=== PATIENT | female | born 1955 | race Caucasian/White ===

== ENCOUNTER → 2020-05-30 | Outpatient (CLI) | payer OTHER | END | disposition home or self-care (01) | LOC: RAD 11:37 | DX: M47.812 Spondylosis without myelopathy or radiculopathy, cervical region (principal); M43.12 Spondylolisthesis, cervical region; M48.02 Spinal stenosis, cervical region; M25.78 Osteophyte, vertebrae ==

== ENCOUNTER → 2020-07-19 | Outpatient (CLI) | payer OTHER | END | disposition home or self-care (01) | LOC: MRI 13:00 | PROVIDERS: ATTEND Orthopaedic Surgery | DX: M47.817 Spondylosis without myelopathy or radiculopathy, lumbosacral region (principal); M51.37 Other intervertebral disc degeneration, lumbosacral region; M43.06 Spondylolysis, lumbar region; M17.0 Bilateral primary osteoarthritis of knee; M25.762 Osteophyte, left knee; M25.761 Osteophyte, right knee; M47.812 Spondylosis without myelopathy or radiculopathy, cervical region; M48.02 Spinal stenosis, cervical region; M25.78 Osteophyte, vertebrae; R20.2 Paresthesia of skin; R29.2 Abnormal reflex; M54.41 Lumbago with sciatica, right side; M43.02 Spondylolysis, cervical region ==

== ENCOUNTER 2022-11-08 18:30 | Emergency (ER) | payer MEDICARE, OTHER ==
[~2022-11-08] VITALS: Ht 165.1 cm; Wt 116.1 kg
[2022-11-08] MEDS ORDERED: NEURONTIN600 MG PO (19:49)
[2022-11-08] MEDS ORDERED: ATORVASTATIN CA20 M1 PO (19:50)
[2022-11-08] MEDS ORDERED: VOLTAREN50 M1 PO (19:50)
[2022-11-08] MEDS ORDERED: PERCOCET 10-321 EACH PO (19:52)
[2022-11-08 20:35] LABS: BASO % 0.4 % (0.0-1.0); EOS % 0.1 % (1.0-4.0); HEMATOCRIT 40.3 % (37.0-47.0); LYMPH # 2.1 10*3/uL (1.3-4.4); LYMPH % 25.1 % (27.0-41.0); MEAN CELL VOLUME 91.4 fl (81.0-99.0); MEAN CORPUSCULAR HGB 29.7 pg (27.0-31.0); MEAN CORPUSCULAR HGB CONC 32.5 g/dl (33.0-37.0); MEAN PLATELET VOLUME 10.6 fl (9.6-12.3); MONO # 0.6 10*3/uL (0.1-1.0); MONO % 7.3 % (3.0-9.0); NEUT # 5.7 10*3/uL (2.3-7.9); NEUT % 66.7 % (47.0-73.0); PLATELET COUNT AUTOMATED 206 10*3/uL (130-400); RED BLOOD COUNT 4.41 10*6/uL (4.10-5.10); RED CELL DISTRI WIDTH 12.4 % (0-14.5); WHITE BLOOD COUNT 8.5 10*3/uL (4.8-10.8)
[2022-11-08 20:50] LABS: ALKALINE PHOSPHATASE 88 U/L (46-116); BUN 23 mg/dl (9-23); CHLORIDE 103 mmol/L (98-107); CREATININE 0.97 mg/dL (0.55-1.02); LIPASE 40 U/L (12-53); POTASSIUM 4.2 mmol/L (3.4-5.1); SGPT/ALT 15 U/L (10-49); TOTAL PROTEIN 6.6 gm/dL (6.0-8.0)
[2022-11-08 20:51] LABS: ACT PARTIAL THROMBO TIME 24.5 SECONDS (20.0-32.1); INTERNATIONAL NORM RATIO 0.9 (2.0-3.5)
[2022-11-08] MEDS ORDERED: PREDNISONE20 M1 PO (22:53)
== END 2022-11-08 23:49 | disposition home or self-care (01) ==
LOC: ED 18:30
PROVIDERS: Family Medicine
DX: M48.02 Spinal stenosis, cervical region (principal)

== ENCOUNTER → 2023-02-25 | Outpatient (CLI) | payer MEDICARE ==
[~2023-02-25] MED LIST: ATORVASTATIN CA20 M1 PO; BUSPIRONE HCL10 MG PO; DICLOFENAC SOD75 MG PO; FUROSEMIDE20 M1 PO; GABAPENTIN800 MG PO; MELATONIN5 M7 PO; NEURONTIN600 MG PO; OMNICEF300 MG PO; PERCOCET 10-321 EACH PO; POTASSIUM CHLO10 ME5 PO; PREDNISONE20 M1 PO; TRAZODONE100 MG PO; VOLTAREN50 M1 PO; ZITHROMAX250 MG PO
== END | disposition home or self-care (01) ==
LOC: RESCLI 10:35
PROVIDERS: ATTEND Internal Medicine
DX: J44.9 Chronic obstructive pulmonary disease, unspecified (principal); E78.5 Hyperlipidemia, unspecified; F17.210 Nicotine dependence, cigarettes, uncomplicated; Z98.890 Other specified postprocedural states; Z79.899 Other long term (current) drug therapy

== ENCOUNTER → 2023-05-02 | Outpatient (CLI) | payer MEDICARE | END | disposition home or self-care (01) | LOC: RAD 01:14 | PROVIDERS: ATTEND Orthopaedic Surgery | DX: Z13.820 Encounter for screening for osteoporosis (principal); M17.11 Unilateral primary osteoarthritis, right knee; M17.12 Unilateral primary osteoarthritis, left knee; M25.50 Pain in unspecified joint; R93.89 Abnormal findings on diagnostic imaging of other specified body structures; Z78.0 Asymptomatic menopausal state ==

== ENCOUNTER 2023-06-22 15:25 | Emergency (ER) | payer MEDICARE ==
[~2023-06-22] VITALS: Ht 1676 cm; Wt 111.6 kg
[2023-06-22 16:01] LABS: BASO % 0.6 % (0.0-1.0); EOS # 0.1 10*3/uL (0.0-0.4); EOS % 1.7 % (1.0-4.0); HEMATOCRIT 33.1 % (37.0-47.0); LYMPH # 1.3 10*3/uL (1.3-4.4); LYMPH % 24.2 % (27.0-41.0); MEAN CELL VOLUME 90.7 fl (81.0-99.0); MEAN CORPUSCULAR HGB 29.3 pg (27.0-31.0); MEAN CORPUSCULAR HGB CONC 32.3 g/dl (33.0-37.0); MEAN PLATELET VOLUME 10.1 fl (9.6-12.3); MONO # 0.4 10*3/uL (0.1-1.0); MONO % 8.5 % (3.0-9.0); NEUT # 3.3 10*3/uL (2.3-7.9); NEUT % 64.6 % (47.0-73.0); PLATELET COUNT AUTOMATED 181 10*3/uL (130-400); RED BLOOD COUNT 3.65 10*6/uL (4.10-5.10); RED CELL DISTRI WIDTH 12.9 % (0-14.5); WHITE BLOOD COUNT 5.2 10*3/uL (4.8-10.8)
[2023-06-22 16:17] LABS: BILIRUBIN Negative (Negative); BLOOD Negative (Negative); CLARITY Clear (Clear); COLOR Yellow (Yellow); GLUCOSE Negative (Negative); KETONE Negative (Negative); LEUKO ESTERASE Negative (Negative); NITRITE Negative (Negative); PH 7.5 (4.5-8.0)
[2023-06-22 16:24] LABS: ALKALINE PHOSPHATASE 108 U/L (46-116); BUN 10 mg/dl (9-23); CHLORIDE 99 mmol/L (98-107); POTASSIUM 4.3 mmol/L (3.4-5.1); SGPT/ALT 13 U/L (10-49); TOTAL PROTEIN 6.2 gm/dL (6.0-8.0)
[2023-06-22 16:28] LABS: BACTERIA TRACE; EPITHELIAL CELLS 16-20
== END 2023-06-22 17:36 | disposition home or self-care (01) ==
LOC: ED 15:25
PROVIDERS: Nurse Practitioner Family
DX: S83.91XA Sprain of unspecified site of right knee, initial encounter (principal); I10 Essential (primary) hypertension; J44.9 Chronic obstructive pulmonary disease, unspecified; W01.0XXA Fall on same level from slipping, tripping and stumbling without subsequent striking against object, initial encounter; Y93.89 Activity, other specified; Y92.89 Other specified places as the place of occurrence of the external cause; Y99.8 Other external cause status

== ENCOUNTER 2023-06-26 00:01 | Inpatient (IN) | payer MEDICARE ==
[~2023-06-26] VITALS: Ht 160 cm; Wt 111.6 kg
[2023-06-26] VITALS (8 sets, daily range): BP systolic 87–144; BP diastolic 46–87
[2023-06-26 00:18] LABS: BASO % 0.4 % (0.0-1.0); EOS % 0.3 % (1.0-4.0); HEMATOCRIT 32.6 % (37.0-47.0); LYMPH # 1.6 10*3/uL (1.3-4.4); LYMPH % 15.1 % (27.0-41.0); MEAN CELL VOLUME 88.3 fl (81.0-99.0); MEAN CORPUSCULAR HGB 29.5 pg (27.0-31.0); MEAN CORPUSCULAR HGB CONC 33.4 g/dl (33.0-37.0); MEAN PLATELET VOLUME 10.2 fl (9.6-12.3); MONO # 0.9 10*3/uL (0.1-1.0); MONO % 8.8 % (3.0-9.0); NEUT # 7.8 10*3/uL (2.3-7.9); NEUT % 75.1 % (47.0-73.0); PLATELET COUNT AUTOMATED 195 10*3/uL (130-400); RED BLOOD COUNT 3.69 10*6/uL (4.10-5.10); RED CELL DISTRI WIDTH 13.1 % (0-14.5); WHITE BLOOD COUNT 10.4 10*3/uL (4.8-10.8)
[2023-06-26 00:29] LABS: ACT PARTIAL THROMBO TIME 27.1 SECONDS (20.0-32.1)
[2023-06-26 00:44] LABS: POTASSIUM 4.1 mmol/L (3.4-5.1); TOTAL PROTEIN 6.4 gm/dL (6.0-8.0)
[2023-06-26 01:10] LABS: BILIRUBIN Negative (Negative); BLOOD Negative (Negative); CLARITY Clear (Clear); COLOR Yellow (Yellow); GLUCOSE Negative (Negative); KETONE Trace (Negative); LEUKO ESTERASE Negative (Negative); NITRITE Negative (Negative); PH 5.5 (4.5-8.0); SPECIFIC GRAVITY 1.015 (1.001-1.030)
[2023-06-26 02:03] LABS: BACTERIA TRACE; WBC 0-2 wbc/hpf (0-5)
[2023-06-26] MEDS ORDERED: 'CLONIDINE0.1 MG PO (03:14)
[2023-06-26] MEDS ORDERED: ABILIFY2 MG PO (03:14)
[2023-06-26] MEDS ORDERED: ARIPIPRAZOLE2 MG PO (03:15)
[2023-06-26] MEDS ORDERED: BUSPAR15 MG PO (03:16)
[2023-06-26] MEDS ORDERED: Bactroban Oint22 GM T (03:17)
[2023-06-26] MEDS ORDERED: SPIRIVA RESPIMAT4 GM INH (03:38)
[2023-06-26] MEDS ORDERED: PROVENTIL HFA6.7 GM INH (03:38)
[2023-06-26 05:31] LABS: ALKALINE PHOSPHATASE 94 U/L (46-116); BUN 14 mg/dl (9-23); CHLORIDE 101 mmol/L (98-107); POTASSIUM 4.1 mmol/L (3.4-5.1); SGPT/ALT 21 U/L (10-49); TOTAL PROTEIN 5.9 gm/dL (6.0-8.0)
[2023-06-26 06:07] LABS: BASO % 0.4 % (0.0-1.0); EOS % 0.6 % (1.0-4.0); HEMATOCRIT 32.4 % (37.0-47.0); LYMPH # 1.5 10*3/uL (1.3-4.4); LYMPH % 22.5 % (27.0-41.0); MEAN CORPUSCULAR HGB 29.4 pg (27.0-31.0); MEAN CORPUSCULAR HGB CONC 32.1 g/dl (33.0-37.0); MEAN PLATELET VOLUME 10.7 fl (9.6-12.3); MONO # 0.6 10*3/uL (0.1-1.0); MONO % 8.9 % (3.0-9.0); NEUT # 4.5 10*3/uL (2.3-7.9); NEUT % 66.6 % (47.0-73.0); PLATELET COUNT AUTOMATED 170 10*3/uL (130-400); RED BLOOD COUNT 3.54 10*6/uL (4.10-5.10); RED CELL DISTRI WIDTH 13.1 % (0-14.5); WHITE BLOOD COUNT 6.8 10*3/uL (4.8-10.8)
[2023-06-26 06:59] LABS: MEAN CELL VOLUME 91.5 fl (81.0-99.0)
[2023-06-26] MEDS ORDERED: VOLTAREN ARTHRI20 GM T (17:31)
[2023-06-27] VITALS: BP 110/84
[2023-06-27 05:57] LABS: HEMATOCRIT 34.9 % (37.0-47.0); MEAN CELL VOLUME 91.1 fl (81.0-99.0); MEAN PLATELET VOLUME 10.5 fl (9.6-12.3); PLATELET COUNT AUTOMATED 191 10*3/uL (130-400); RED BLOOD COUNT 3.83 10*6/uL (4.10-5.10); RED CELL DISTRI WIDTH 12.8 % (0-14.5); WHITE BLOOD COUNT 6.3 10*3/uL (4.8-10.8)
[2023-06-27 06:13] LABS: ALKALINE PHOSPHATASE 102 U/L (46-116); BUN 12 mg/dl (9-23); CHLORIDE 103 mmol/L (98-107); MANUAL DIFF REFLEX YES; POTASSIUM 4.7 mmol/L (3.4-5.1); SGPT/ALT 26 U/L (10-49); TOTAL PROTEIN 6.6 gm/dL (6.0-8.0)
[2023-06-27 07:37] LABS: TOTAL CELLS COUNTED 100 #CELLS
[2023-06-27 07:38] LABS: PLATELET SUFFICIENCY NORMAL (NORMAL)
[2023-06-27 08:00] VITALS: BP 111/72
[2023-06-27 12:00] VITALS: BP 129/70
[2023-06-27 16:00] VITALS: BP 125/70
[2023-06-27 20:00] VITALS: BP 125/68
[2023-06-28] VITALS: BP 149/77
[2023-06-28] MEDS ORDERED: DICLOFENAC SOD75 MG PO (06:19)
[2023-06-28] MEDS ORDERED: BUPROPION XL300 MG PO (06:24)
[2023-06-28] MEDS ORDERED: VITAMIN D310 MC3 PO (06:28)
[2023-06-28 08:02] VITALS: BP 128/65
[2023-06-28 12:12] VITALS: BP 130/84
[2023-06-28 16:04] VITALS: BP 140/78
[2023-06-28 20:00] VITALS: BP 153/84
[2023-06-29] VITALS: BP 159/87
[2023-06-29 08:00] VITALS: BP 141/90
[2023-06-29 12:00] VITALS: BP 151/88
[2023-06-29 16:00] VITALS: BP 148/87
[2023-06-29 20:00] VITALS: BP 141/85
[2023-06-30] VITALS: BP 129/72
[2023-06-30 07:09] LABS: BASO % 0.4 % (0.0-1.0); HEMATOCRIT 36.7 % (37.0-47.0); LYMPH % 12.3 % (27.0-41.0); MEAN CELL VOLUME 92.4 fl (81.0-99.0); MEAN CORPUSCULAR HGB 29.5 pg (27.0-31.0); MEAN CORPUSCULAR HGB CONC 31.9 g/dl (33.0-37.0); MEAN PLATELET VOLUME 10.6 fl (9.6-12.3); MONO # 0.2 10*3/uL (0.1-1.0); NEUT # 6.7 10*3/uL (2.3-7.9); NEUT % 83.1 % (47.0-73.0); PLATELET COUNT AUTOMATED 215 10*3/uL (130-400); RED BLOOD COUNT 3.97 10*6/uL (4.10-5.10)
[2023-06-30 08:00] VITALS: BP 140/67
[2023-06-30 12:00] VITALS: BP 135/80
[2023-06-30] MEDS ORDERED: GABAPENTIN800 MG PO (16:13)
[2023-06-30] MEDS ORDERED: DEXAMETHASONE6 MG PO (16:13)
[2023-06-30] MEDS ORDERED: PERCOCET 10-321 EACH PO (16:13)
[2023-06-30] MEDS ORDERED: VIBRAMYCIN HYC100 MG PO (16:16)
== END 2023-06-30 17:00 | DRG 602 ==
LOC: ED 00:01 → 5E 02:14 → EDHOLD 02:14 → 5E 13:39
PROVIDERS: Internal Medicine; Student in an Organized Health Care Education/Training Program; ADMIT Internal Medicine; ATTEND Internal Medicine
DX: L03.116 Cellulitis of left lower limb (principal); J96.01 Acute respiratory failure with hypoxia; J44.1 Chronic obstructive pulmonary disease with (acute) exacerbation; E87.1 Hypo-osmolality and hyponatremia; T88.3XXA Malignant hyperthermia due to anesthesia, initial encounter; F17.210 Nicotine dependence, cigarettes, uncomplicated; R00.0 Tachycardia, unspecified; R73.9 Hyperglycemia, unspecified; D64.9 Anemia, unspecified; K80.20 Calculus of gallbladder without cholecystitis without obstruction; L03.115 Cellulitis of right lower limb; R74.01 Elevation of levels of liver transaminase levels; D35.02 Benign neoplasm of left adrenal gland; M47.816 Spondylosis without myelopathy or radiculopathy, lumbar region; M48.062 Spinal stenosis, lumbar region with neurogenic claudication; G62.9 Polyneuropathy, unspecified; S91.101A Unspecified open wound of right great toe without damage to nail, initial encounter; X58.XXXA Exposure to other specified factors, initial encounter; S91.102A Unspecified open wound of left great toe without damage to nail, initial encounter; S91.002A Unspecified open wound, left ankle, initial encounter; E78.5 Hyperlipidemia, unspecified; F41.9 Anxiety disorder, unspecified; F32.A Depression, unspecified; T41.45XA Adverse effect of unspecified anesthetic, initial encounter; Z88.1 Allergy status to other antibiotic agents; Z88.8 Allergy status to other drugs, medicaments and biological substances; Z80.8 Family history of malignant neoplasm of other organs or systems; Z82.49 Family history of ischemic heart disease and other diseases of the circulatory system; Y93.89 Activity, other specified; Y92.89 Other specified places as the place of occurrence of the external cause; Y99.8 Other external cause status

== ENCOUNTER 2023-08-25 00:16 | Emergency (ER) | payer MEDICARE ==
[~2023-08-25] VITALS: Wt 118.8 kg
[~2023-08-25 00:16] MED LIST changes: +'CLONIDINE0.1 MG PO; +ABILIFY2 MG PO; +ARIPIPRAZOLE2 MG PO; +ARTHRITIS PAIN150 GM T; +BISACODYL10 MG R; +BUPROPION XL300 MG PO; +BUSPAR15 MG PO; +Bactroban Oint22 GM T; +CYCLOBENZAPRINE10 MG PO; +DEXAMETHASONE6 MG PO; +FLEET ENEMA 13133 ML R; +INCRUSE ELLI62.5 MCG INH; +LASIX40 MG PO; +MILK OF MA400 MG/5 M PO; +PROAIR RESPICL90 MCG INH; +PROVENTIL HFA6.7 GM INH; +ROZEREM8 MG PO; +SOAANZ40 M1 PO; +SPIRIVA RESPIMAT4 GM INH; +VIBRAMYCIN HYC100 MG PO; +VITAMIN D310 MC3 PO; +VOLTAREN ARTHRI20 GM T
[2023-08-25 01:17] LABS: BILIRUBIN Negative (Negative); BLOOD Negative (Negative); CLARITY Clear (Clear); COLOR Yellow (Yellow); GLUCOSE Negative (Negative); KETONE Negative (Negative); LEUKO ESTERASE 2+ (Negative); NITRITE Negative (Negative); SPECIFIC GRAVITY 1.015 (1.001-1.030)
[2023-08-25 01:27] LABS: BACTERIA 1+; WBC 16-20 wbc/hpf (0-5)
[2023-08-25 01:40] LABS: BASO % 0.4 % (0.0-1.0); EOS # 0.1 10*3/uL (0.0-0.4); EOS % 1.6 % (1.0-4.0); HEMATOCRIT 32.4 % (37.0-47.0); LYMPH # 1.3 10*3/uL (1.3-4.4); LYMPH % 15.6 % (27.0-41.0); MEAN CELL VOLUME 92.3 fl (81.0-99.0); MEAN CORPUSCULAR HGB 28.8 pg (27.0-31.0); MEAN CORPUSCULAR HGB CONC 31.2 g/dl (33.0-37.0); MEAN PLATELET VOLUME 10.5 fl (9.6-12.3); MONO # 0.4 10*3/uL (0.1-1.0); NEUT # 6.3 10*3/uL (2.3-7.9); PLATELET COUNT AUTOMATED 185 10*3/uL (130-400); RED BLOOD COUNT 3.51 10*6/uL (4.10-5.10); RED CELL DISTRI WIDTH 13.6 % (0-14.5); WHITE BLOOD COUNT 8.2 10*3/uL (4.8-10.8)
[2023-08-25 01:58] LABS: ACT PARTIAL THROMBO TIME 30.2 SECONDS (20.0-32.1); INTERNATIONAL NORM RATIO 1.1 (2.0-3.5)
[2023-08-25 02:01] LABS: POTASSIUM 3.5 mmol/L (3.4-5.1); TOTAL PROTEIN 6.7 gm/dL (6.0-8.0)
[2023-08-25] MEDS ORDERED: CIPRO500 MG PO (03:29)
== END 2023-08-25 04:35 | disposition home or self-care (01) ==
LOC: ED 00:16
PROVIDERS: Internal Medicine
DX: S00.83XA Contusion of other part of head, initial encounter (principal); N39.0 Urinary tract infection, site not specified; J44.9 Chronic obstructive pulmonary disease, unspecified; I10 Essential (primary) hypertension; M19.90 Unspecified osteoarthritis, unspecified site; Z98.890 Other specified postprocedural states; F17.210 Nicotine dependence, cigarettes, uncomplicated; W19.XXXA Unspecified fall, initial encounter; Y93.89 Activity, other specified; Y92.89 Other specified places as the place of occurrence of the external cause; Y99.8 Other external cause status

== ENCOUNTER → 2023-09-19 | Outpatient (CLI) | payer MEDICARE ==
[~2023-09-19] MED LIST changes: +CIPRO500 MG PO
== END | disposition home or self-care (01) ==
LOC: WOUNDCARE 03:46
PROVIDERS: ATTEND Nurse Practitioner Family
DX: L97.812 Non-pressure chronic ulcer of other part of right lower leg with fat layer exposed (principal); L97.822 Non-pressure chronic ulcer of other part of left lower leg with fat layer exposed; S91.105A Unspecified open wound of left lesser toe(s) without damage to nail, initial encounter; L89.153 Pressure ulcer of sacral region, stage 3; I87.2 Venous insufficiency (chronic) (peripheral); I50.9 Heart failure, unspecified; M19.90 Unspecified osteoarthritis, unspecified site; G62.9 Polyneuropathy, unspecified; J44.9 Chronic obstructive pulmonary disease, unspecified; M48.00 Spinal stenosis, site unspecified; F17.210 Nicotine dependence, cigarettes, uncomplicated; Z71.6 Tobacco abuse counseling; X58.XXXA Exposure to other specified factors, initial encounter; Y93.89 Activity, other specified; Y92.89 Other specified places as the place of occurrence of the external cause; Y99.8 Other external cause status

== ENCOUNTER → 2023-09-26 | Outpatient (CLI) | payer MEDICARE | END | disposition home or self-care (01) | LOC: WOUNDCARE 00:47 | PROVIDERS: ATTEND Nurse Practitioner Family | DX: L89.153 Pressure ulcer of sacral region, stage 3 (principal); L97.812 Non-pressure chronic ulcer of other part of right lower leg with fat layer exposed; L97.822 Non-pressure chronic ulcer of other part of left lower leg with fat layer exposed; S91.104D Unspecified open wound of right lesser toe(s) without damage to nail, subsequent encounter; I87.2 Venous insufficiency (chronic) (peripheral); I50.9 Heart failure, unspecified; J44.9 Chronic obstructive pulmonary disease, unspecified; G62.9 Polyneuropathy, unspecified; M19.90 Unspecified osteoarthritis, unspecified site; M48.00 Spinal stenosis, site unspecified; F17.210 Nicotine dependence, cigarettes, uncomplicated; Z71.6 Tobacco abuse counseling; X58.XXXD Exposure to other specified factors, subsequent encounter ==

== ENCOUNTER → 2023-09-30 | Outpatient (CLI) | payer MEDICARE | END | disposition home or self-care (01) | LOC: WOUNDCARE 02:23 | PROVIDERS: ATTEND Nurse Practitioner Family | DX: L97.812 Non-pressure chronic ulcer of other part of right lower leg with fat layer exposed (principal); L97.822 Non-pressure chronic ulcer of other part of left lower leg with fat layer exposed; S91.104D Unspecified open wound of right lesser toe(s) without damage to nail, subsequent encounter; L89.153 Pressure ulcer of sacral region, stage 3; I87.2 Venous insufficiency (chronic) (peripheral); I50.9 Heart failure, unspecified; J44.9 Chronic obstructive pulmonary disease, unspecified; M19.90 Unspecified osteoarthritis, unspecified site; G62.9 Polyneuropathy, unspecified; M48.00 Spinal stenosis, site unspecified; F17.210 Nicotine dependence, cigarettes, uncomplicated; Z71.6 Tobacco abuse counseling; X58.XXXD Exposure to other specified factors, subsequent encounter ==

== ENCOUNTER → 2023-10-09 | Outpatient (CLI) | payer MEDICARE | END | disposition home or self-care (01) | LOC: WOUNDCARE 01:05 | PROVIDERS: ATTEND Nurse Practitioner Family | DX: L97.812 Non-pressure chronic ulcer of other part of right lower leg with fat layer exposed (principal); L97.822 Non-pressure chronic ulcer of other part of left lower leg with fat layer exposed; L89.153 Pressure ulcer of sacral region, stage 3; S91.104D Unspecified open wound of right lesser toe(s) without damage to nail, subsequent encounter; I87.2 Venous insufficiency (chronic) (peripheral); I50.9 Heart failure, unspecified; G62.9 Polyneuropathy, unspecified; M19.90 Unspecified osteoarthritis, unspecified site; F17.210 Nicotine dependence, cigarettes, uncomplicated; Z71.6 Tobacco abuse counseling; X58.XXXD Exposure to other specified factors, subsequent encounter ==

== ENCOUNTER → 2023-10-17 | Outpatient (CLI) | payer MEDICARE | END | disposition home or self-care (01) | LOC: WOUNDCARE 00:26 | PROVIDERS: ATTEND Nurse Practitioner Family | DX: L97.812 Non-pressure chronic ulcer of other part of right lower leg with fat layer exposed (principal); L97.822 Non-pressure chronic ulcer of other part of left lower leg with fat layer exposed; S91.104D Unspecified open wound of right lesser toe(s) without damage to nail, subsequent encounter; L89.153 Pressure ulcer of sacral region, stage 3; G62.9 Polyneuropathy, unspecified; I50.9 Heart failure, unspecified; I87.2 Venous insufficiency (chronic) (peripheral); J44.9 Chronic obstructive pulmonary disease, unspecified; M48.00 Spinal stenosis, site unspecified; M19.90 Unspecified osteoarthritis, unspecified site; F17.200 Nicotine dependence, unspecified, uncomplicated; Z71.6 Tobacco abuse counseling; X58.XXXD Exposure to other specified factors, subsequent encounter ==

== ENCOUNTER → 2023-10-28 | Outpatient (CLI) | payer MEDICARE | END | disposition home or self-care (01) | LOC: WOUNDCARE | PROVIDERS: ATTEND Nurse Practitioner Family | DX: L97.812 Non-pressure chronic ulcer of other part of right lower leg with fat layer exposed (principal); L97.822 Non-pressure chronic ulcer of other part of left lower leg with fat layer exposed; L89.153 Pressure ulcer of sacral region, stage 3; I87.2 Venous insufficiency (chronic) (peripheral); I50.9 Heart failure, unspecified; G62.9 Polyneuropathy, unspecified; J44.9 Chronic obstructive pulmonary disease, unspecified; M19.90 Unspecified osteoarthritis, unspecified site; M48.00 Spinal stenosis, site unspecified; F17.210 Nicotine dependence, cigarettes, uncomplicated; Z71.6 Tobacco abuse counseling ==

== ENCOUNTER → 2023-11-06 | Outpatient (CLI) | payer MEDICARE | END | disposition home or self-care (01) | LOC: WOUNDCARE 03:50 | PROVIDERS: ATTEND Nurse Practitioner Family | DX: L89.153 Pressure ulcer of sacral region, stage 3 (principal); L97.812 Non-pressure chronic ulcer of other part of right lower leg with fat layer exposed; L97.822 Non-pressure chronic ulcer of other part of left lower leg with fat layer exposed; I87.2 Venous insufficiency (chronic) (peripheral); I50.9 Heart failure, unspecified; J44.9 Chronic obstructive pulmonary disease, unspecified; M19.90 Unspecified osteoarthritis, unspecified site; F17.210 Nicotine dependence, cigarettes, uncomplicated ==

== ENCOUNTER → 2023-11-14 | Outpatient (CLI) | payer MEDICARE | END | disposition home or self-care (01) | LOC: WOUNDCARE 03:16 | PROVIDERS: ATTEND Nurse Practitioner Family | DX: L89.153 Pressure ulcer of sacral region, stage 3 (principal); L97.812 Non-pressure chronic ulcer of other part of right lower leg with fat layer exposed; L97.822 Non-pressure chronic ulcer of other part of left lower leg with fat layer exposed; I87.2 Venous insufficiency (chronic) (peripheral); I50.9 Heart failure, unspecified; J44.9 Chronic obstructive pulmonary disease, unspecified; M19.90 Unspecified osteoarthritis, unspecified site; F17.210 Nicotine dependence, cigarettes, uncomplicated ==

== ENCOUNTER → 2023-11-20 | Outpatient (CLI) | payer MEDICARE | END | disposition home or self-care (01) | LOC: WOUNDCARE 01:52 | PROVIDERS: ATTEND Nurse Practitioner Family | DX: L89.153 Pressure ulcer of sacral region, stage 3 (principal); L97.812 Non-pressure chronic ulcer of other part of right lower leg with fat layer exposed; L97.822 Non-pressure chronic ulcer of other part of left lower leg with fat layer exposed; I87.2 Venous insufficiency (chronic) (peripheral); I50.9 Heart failure, unspecified; M19.90 Unspecified osteoarthritis, unspecified site; J44.9 Chronic obstructive pulmonary disease, unspecified; F17.210 Nicotine dependence, cigarettes, uncomplicated ==

== ENCOUNTER → 2023-12-12 | Outpatient (CLI) | payer MEDICARE | END | disposition home or self-care (01) | LOC: WOUNDCARE 00:58 | PROVIDERS: ATTEND Nurse Practitioner Family | DX: L89.153 Pressure ulcer of sacral region, stage 3 (principal); L97.812 Non-pressure chronic ulcer of other part of right lower leg with fat layer exposed; L97.822 Non-pressure chronic ulcer of other part of left lower leg with fat layer exposed; I87.2 Venous insufficiency (chronic) (peripheral); I50.9 Heart failure, unspecified; J44.9 Chronic obstructive pulmonary disease, unspecified; M19.90 Unspecified osteoarthritis, unspecified site; G62.9 Polyneuropathy, unspecified; F17.210 Nicotine dependence, cigarettes, uncomplicated ==

== ENCOUNTER → 2023-12-18 | Outpatient (CLI) | payer MEDICARE | END | disposition home or self-care (01) | LOC: WOUNDCARE 12-17 02:45 | PROVIDERS: ATTEND Nurse Practitioner Family | DX: L97.822 Non-pressure chronic ulcer of other part of left lower leg with fat layer exposed (principal); L97.812 Non-pressure chronic ulcer of other part of right lower leg with fat layer exposed; I87.2 Venous insufficiency (chronic) (peripheral); I50.9 Heart failure, unspecified; J44.9 Chronic obstructive pulmonary disease, unspecified; M19.90 Unspecified osteoarthritis, unspecified site; G62.9 Polyneuropathy, unspecified; F17.210 Nicotine dependence, cigarettes, uncomplicated ==

== ENCOUNTER → 2023-12-26 | Outpatient (CLI) | payer MEDICARE | END | disposition home or self-care (01) | LOC: WOUNDCARE 00:48 | PROVIDERS: ATTEND Nurse Practitioner Family | DX: L97.812 Non-pressure chronic ulcer of other part of right lower leg with fat layer exposed (principal); L97.822 Non-pressure chronic ulcer of other part of left lower leg with fat layer exposed; I87.2 Venous insufficiency (chronic) (peripheral); I50.9 Heart failure, unspecified; J44.9 Chronic obstructive pulmonary disease, unspecified; G62.9 Polyneuropathy, unspecified; M19.90 Unspecified osteoarthritis, unspecified site; F17.210 Nicotine dependence, cigarettes, uncomplicated ==

== ENCOUNTER → 2024-01-15 | Outpatient (CLI) | payer MEDICARE | END | disposition home or self-care (01) | LOC: WOUNDCARE 01:36 | PROVIDERS: ATTEND Nurse Practitioner Family | DX: L97.822 Non-pressure chronic ulcer of other part of left lower leg with fat layer exposed (principal); L97.812 Non-pressure chronic ulcer of other part of right lower leg with fat layer exposed; L60.0 Ingrowing nail; I87.2 Venous insufficiency (chronic) (peripheral); J44.9 Chronic obstructive pulmonary disease, unspecified; M19.90 Unspecified osteoarthritis, unspecified site; G62.9 Polyneuropathy, unspecified; I50.9 Heart failure, unspecified; F17.210 Nicotine dependence, cigarettes, uncomplicated; Z71.6 Tobacco abuse counseling; L60.2 Onychogryphosis; M79.604 Pain in right leg; M79.605 Pain in left leg ==

== ENCOUNTER → 2024-01-23 | Outpatient (CLI) | payer MEDICARE | END | disposition home or self-care (01) | LOC: WOUNDCARE 00:52 | PROVIDERS: ATTEND Nurse Practitioner Family | DX: L97.822 Non-pressure chronic ulcer of other part of left lower leg with fat layer exposed (principal); L97.812 Non-pressure chronic ulcer of other part of right lower leg with fat layer exposed; I87.2 Venous insufficiency (chronic) (peripheral); L60.2 Onychogryphosis; J44.9 Chronic obstructive pulmonary disease, unspecified; M19.90 Unspecified osteoarthritis, unspecified site; G62.9 Polyneuropathy, unspecified; M48.00 Spinal stenosis, site unspecified; I50.9 Heart failure, unspecified; F17.210 Nicotine dependence, cigarettes, uncomplicated; Z71.6 Tobacco abuse counseling; Z91.81 History of falling; Z79.899 Other long term (current) drug therapy ==

== ENCOUNTER → 2024-06-01 | Outpatient (CLI) | payer MEDICARE ==
[~2024-06-01] MED LIST changes: +ONCE-DAILY WEL300 MG PO
== END | disposition home or self-care (01) ==
LOC: RESCLI 00:50
PROVIDERS: ATTEND Internal Medicine
DX: J44.9 Chronic obstructive pulmonary disease, unspecified (principal); M19.90 Unspecified osteoarthritis, unspecified site; G62.9 Polyneuropathy, unspecified; R60.9 Edema, unspecified; E78.5 Hyperlipidemia, unspecified; E55.9 Vitamin D deficiency, unspecified; G47.00 Insomnia, unspecified; Z79.899 Other long term (current) drug therapy; Z88.8 Allergy status to other drugs, medicaments and biological substances; Z98.890 Other specified postprocedural states

== ENCOUNTER → 2024-06-07 | Day surgery (SDC) | payer MEDICARE ==
[~2024-06-07] VITALS: Ht 162.5 cm; Wt 118.8 kg
[~2024-06-07] MED LIST changes: +Lactated Ringer's Solution 1,000 ML IV SCH; +Lidocaine Hydrochloride 2% 10 ML AMP IM ONE; +PROPOFOL 200 MG/20 ML VIAL IV ONE; +SODIUM CHLORIDE 0.9% 1,000 ML BAG IV ONE; +fentaNYL CITRATE 100 MCG/2 ML VIAL IV ONE
[2024-06-07 07:03] VITALS: BP 133/66
[2024-06-07 08:13] VITALS: BP 152/84
[2024-06-07 08:28] VITALS: BP 136/88
[2024-06-07 08:43] VITALS: BP 157/95
== END | disposition home or self-care (01) ==
LOC: SDC 06-03 08:00
PROVIDERS: ATTEND Surgery
DX: Z12.11 Encounter for screening for malignant neoplasm of colon (principal); K64.8 Other hemorrhoids; K57.30 Diverticulosis of large intestine without perforation or abscess without bleeding; I11.0 Hypertensive heart disease with heart failure; I50.9 Heart failure, unspecified; J44.9 Chronic obstructive pulmonary disease, unspecified; E78.00 Pure hypercholesterolemia, unspecified; F32.A Depression, unspecified; M47.816 Spondylosis without myelopathy or radiculopathy, lumbar region; M19.90 Unspecified osteoarthritis, unspecified site; F17.210 Nicotine dependence, cigarettes, uncomplicated; F10.90 Alcohol use, unspecified, uncomplicated; Z98.891 History of uterine scar from previous surgery; Z87.440 Personal history of urinary (tract) infections; Z98.890 Other specified postprocedural states; Z79.899 Other long term (current) drug therapy; Z80.0 Family history of malignant neoplasm of digestive organs
CPT/HCPCS: 00812; G0105

== ENCOUNTER 2024-06-27 05:22 | Inpatient (IN) | payer MEDICARE ==
[~2024-06-27] VITALS: Ht 162.5 cm; Wt 109.4 kg
[~2024-06-27 05:22] MED LIST changes: -Lactated Ringer's Solution 1,000 ML IV SCH; -Lidocaine Hydrochloride 2% 10 ML AMP IM ONE; -PROPOFOL 200 MG/20 ML VIAL IV ONE; -SODIUM CHLORIDE 0.9% 1,000 ML BAG IV ONE; -fentaNYL CITRATE 100 MCG/2 ML VIAL IV ONE
[2024-06-27 05:27] VITALS: BP 131/63
[2024-06-27 06:07] LABS: BASO % 0.3 % (0.0-1.0); HEMATOCRIT 36.2 % (37.0-47.0); LYMPH % 9.4 % (27.0-41.0); MEAN CELL VOLUME 88.5 fl (81.0-99.0); MEAN CORPUSCULAR HGB 29.3 pg (27.0-31.0); MEAN CORPUSCULAR HGB CONC 33.1 g/dl (33.0-37.0); MEAN PLATELET VOLUME 10.5 fl (9.6-12.3); MONO # 1.2 10*3/uL (0.1-1.0); MONO % 11.5 % (3.0-9.0); NEUT # 7.9 10*3/uL (2.3-7.9); PLATELET COUNT AUTOMATED 167 10*3/uL (130-400); RED BLOOD COUNT 4.09 10*6/uL (4.10-5.10); RED CELL DISTRI WIDTH 13.3 % (0-14.5); WHITE BLOOD COUNT 10.2 10*3/uL (4.8-10.8)
[2024-06-27 06:21] LABS: ALKALINE PHOSPHATASE 115 U/L (46-116); BUN 6 mg/dl (9-23); CHLORIDE 104 mmol/L (98-107); POTASSIUM 3.6 mmol/L (3.4-5.1); SGPT/ALT 11 U/L (5-49); TOTAL PROTEIN 7.1 gm/dL (6.0-8.0)
[2024-06-27] MEDS ORDERED: SPIRIVA 5 CAPS18 MCG INH (06:28)
[2024-06-27] MEDS ORDERED: Ceftriaxone Sodium 1 GM/10 ML SYR IV ONE (06:30)
[2024-06-27] MEDS ORDERED: AZITHROMYCIN 250 ML IV ONE (06:30)
[2024-06-27] MEDS ORDERED: Acetaminophen/Oxycodone 5 MG/325 MG TABLET PO ONE (06:30)
[2024-06-27] MEDS ORDERED: TEMAZEPAM 15 MG CAP PO PRN (07:30)
[2024-06-27] MEDS ORDERED: BISACODYL 5 MG TAB PO PRN (07:30)
[2024-06-27] MEDS ORDERED: ACETAMINOPHEN 650 MG SUPP R PRN (07:30)
[2024-06-27] MEDS ORDERED: BISACODYL 10 MG SUPP R PRN (07:30)
[2024-06-27] MEDS ORDERED: ACETAMINOPHEN 325 MG TAB PO PRN (07:30)
[2024-06-27] MEDS ORDERED: Magnesium Hydroxide 30 ML UDC PO PRN (07:30)
[2024-06-27] MEDS ORDERED: Ondansetron Hydrochloride 4 MG/2 ML VIAL IV PRN (07:30)
[2024-06-27 07:36] VITALS: BP 155/93
[2024-06-27] MEDS ORDERED: Albuterol Sulf/Ipratropium 3 ML VIAL NEB SCH (07:50)
[2024-06-27] MEDS ORDERED: methylPREDNISolone sod succ 125 MG VIAL IV ONE (07:50)
[2024-06-27] MEDS ORDERED: Acetaminophen/Oxycodone Hydr 7.5 MG/325 MG TABLET PO PRN (08:25)
[2024-06-27] MEDS ORDERED: GABAPENTIN 800 MG TAB PO SCH (10:00)
[2024-06-27] MEDS ORDERED: Enoxaparin Sodium 40 MG/0.4 ML SYR SC SCH (10:00)
[2024-06-27] MEDS ORDERED: ATORVASTATIN CALCIUM 20 MG TAB PO SCH (10:00)
[2024-06-27] MEDS ORDERED: FUROSEMIDE 20 MG TAB PO SCH (10:00)
[2024-06-27] MEDS ORDERED: GUAIFENESIN 600 MG TAB ER PO SCH (10:00)
[2024-06-27] MEDS ORDERED: buPROPion Hydrochloride 75 MG TAB PO SCH (10:00)
[2024-06-27] MEDS ORDERED: IOHEXOL 350 MG/ML 100 ML VIAL IV ONE (10:45)
[2024-06-27] MEDS ORDERED: SODIUM CHLORIDE 0.9% 100 ML BAG IV ONE (10:45)
[2024-06-27 11:52] LABS: ABG BASE EXCESS -0.3 mmol/L (-2.0-2.0); ARTERIAL BLOOD GAS PH 7.456 (7.35-7.45)
[2024-06-27 14:20] VITALS: BP 148/82
[2024-06-27] MEDS ORDERED: Ceftriaxone Sodium 10 ML IV ONE (15:45)
[2024-06-27] MEDS ORDERED: Albuterol Sulfate 2.5 MG/3 ML VIAL NEB SCH (15:45)
[2024-06-27 17:00] VITALS: BP 114/72
[2024-06-27 18:00] VITALS: BP 129/70
[2024-06-27 19:44] VITALS: BP 118/70
[2024-06-27] MEDS ORDERED: Enoxaparin Sodium 100 MG/ML SYR SC SCH (22:00)
[2024-06-28 00:14] VITALS: BP 113/59
[2024-06-28 04:05] VITALS: BP 120/68
[2024-06-28] MEDS ORDERED: AZITHROMYCIN 250 ML IV SCH (06:00)
[2024-06-28] MEDS ORDERED: Pantoprazole Sodium 40 MG TAB PO SCH (06:00)
[2024-06-28 06:21] LABS: BASO % 0.1 % (0.0-1.0); HEMATOCRIT 34.5 % (37.0-47.0); LYMPH # 0.7 10*3/uL (1.3-4.4); LYMPH % 8.7 % (27.0-41.0); MEAN CELL VOLUME 90.6 fl (81.0-99.0); MEAN CORPUSCULAR HGB 28.6 pg (27.0-31.0); MEAN CORPUSCULAR HGB CONC 31.6 g/dl (33.0-37.0); MEAN PLATELET VOLUME 10.8 fl (9.6-12.3); MONO # 0.8 10*3/uL (0.1-1.0); MONO % 9.3 % (3.0-9.0); NEUT # 6.8 10*3/uL (2.3-7.9); NEUT % 81.1 % (47.0-73.0); PLATELET COUNT AUTOMATED 199 10*3/uL (130-400); RED BLOOD COUNT 3.81 10*6/uL (4.10-5.10); RED CELL DISTRI WIDTH 13.2 % (0-14.5); WHITE BLOOD COUNT 8.4 10*3/uL (4.8-10.8)
[2024-06-28 06:26] LABS: ACT PARTIAL THROMBO TIME 29.2 SECONDS (20.0-32.1)
[2024-06-28 06:58] LABS: CHLORIDE 105 mmol/L (98-107); FREE T4 1.12 ng/dl (0.89-1.76); POTASSIUM 3.6 mmol/L (3.4-5.1)
[2024-06-28] MEDS ORDERED: Ceftriaxone Sodium 1 GM in SYRINGE INFUSION 10 ML IV SCH (07:00)
[2024-06-28] MEDS ORDERED: Ceftriaxone Sodium 20 ML IV SCH ×2 (07:00→10:00)
[2024-06-28 07:12] LABS: BUN 16 mg/dl (9-23)
[2024-06-28 08:00] VITALS: BP 115/65
[2024-06-28] MEDS ORDERED: methylPREDNISolone sod succ 40 MG VIAL IV SCH ×2 (10:00)
[2024-06-28 12:00] VITALS: BP 120/68
[2024-06-28] MEDS ORDERED: NYSTATIN 15 GM BOT T SCH (14:00)
[2024-06-28 18:36] VITALS: BP 110/57
[2024-06-28 19:41] VITALS: BP 114/59
[2024-06-29 02:00] VITALS: BP 118/62
[2024-06-29 06:43] VITALS: BP 114/66
[2024-06-29 06:44] VITALS: BP 118/62
[2024-06-29 06:56] LABS: BUN 17 mg/dl (9-23); CHLORIDE 104 mmol/L (98-107); POTASSIUM 4.1 mmol/L (3.4-5.1)
[2024-06-29 06:57] LABS: BASO % 0.1 % (0.0-1.0); HEMATOCRIT 31.7 % (37.0-47.0); LYMPH # 1.1 10*3/uL (1.3-4.4); LYMPH % 14.4 % (27.0-41.0); MEAN CELL VOLUME 90.3 fl (81.0-99.0); MEAN CORPUSCULAR HGB 29.3 pg (27.0-31.0); MEAN CORPUSCULAR HGB CONC 32.5 g/dl (33.0-37.0); MEAN PLATELET VOLUME 10.4 fl (9.6-12.3); MONO # 0.6 10*3/uL (0.1-1.0); MONO % 8.5 % (3.0-9.0); NEUT # 5.6 10*3/uL (2.3-7.9); NEUT % 75.8 % (47.0-73.0); PLATELET COUNT AUTOMATED 191 10*3/uL (130-400); RED BLOOD COUNT 3.51 10*6/uL (4.10-5.10); RED CELL DISTRI WIDTH 13.2 % (0-14.5); WHITE BLOOD COUNT 7.4 10*3/uL (4.8-10.8)
[2024-06-29] MEDS ORDERED: Technetium Tc 99M MacroAg Albu 1 KIT KIT IV SCH (12:10)
[2024-06-29 16:00] VITALS: BP 114/72
[2024-06-29 20:00] VITALS: BP 124/75
[2024-06-30] VITALS: BP 117/71
[2024-06-30 06:16] LABS: BASO % 0.3 % (0.0-1.0); EOS % 0.1 % (1.0-4.0); HEMATOCRIT 33.3 % (37.0-47.0); LYMPH # 1.3 10*3/uL (1.3-4.4); LYMPH % 19.2 % (27.0-41.0); MEAN CELL VOLUME 91.7 fl (81.0-99.0); MEAN CORPUSCULAR HGB 29.2 pg (27.0-31.0); MEAN CORPUSCULAR HGB CONC 31.8 g/dl (33.0-37.0); MEAN PLATELET VOLUME 10.2 fl (9.6-12.3); MONO # 0.6 10*3/uL (0.1-1.0); MONO % 9.2 % (3.0-9.0); NEUT # 4.7 10*3/uL (2.3-7.9); NEUT % 69.1 % (47.0-73.0); PLATELET COUNT AUTOMATED 189 10*3/uL (130-400); RED BLOOD COUNT 3.63 10*6/uL (4.10-5.10); RED CELL DISTRI WIDTH 13.3 % (0-14.5); WHITE BLOOD COUNT 6.8 10*3/uL (4.8-10.8)
[2024-06-30 07:34] LABS: BUN 11 mg/dl (9-23); CHLORIDE 106 mmol/L (98-107); POTASSIUM 3.9 mmol/L (3.4-5.1)
[2024-06-30 08:00] VITALS: BP 122/81
[2024-06-30] MEDS ORDERED: NYSTATIN 15 GM BOT T SCH (08:00)
[2024-06-30] MEDS ORDERED: Ceftriaxone Sodium 2 GM in SYRINGE INFUSION 20 ML IV SCH (10:00)
[2024-06-30] MEDS ORDERED: PREDNISONE10 MG PO (11:52)
[2024-06-30] MEDS ORDERED: DOXYCYCLINE HY100 M3 PO (11:52)
[2024-06-30] MEDS ORDERED: OXYGEN NAS (11:54)
[2024-06-30 12:00] VITALS: BP 149/83
[2024-06-30 16:00] VITALS: BP 156/87
== END 2024-06-30 18:01 | disposition home health service (06) | DRG 871 ==
LOC: ED 05:22 → EDHOLD 06:34 → 4E 06-29 16:00
PROVIDERS: Internal Medicine; Student in an Organized Health Care Education/Training Program; ADMIT Internal Medicine; ATTEND Internal Medicine
PROC: 05HF33Z Insertion of Infusion Device into Left Cephalic Vein, Percutaneous Approach (ICD-10-PCS; principal; 2024-06-29)
PROC: B54NZZA Ultrasonography of Left Upper Extremity Veins, Guidance (ICD-10-PCS; 2024-06-29)
DX: A41.9 Sepsis, unspecified organism (principal); J15.9 Unspecified bacterial pneumonia; J96.01 Acute respiratory failure with hypoxia; E87.1 Hypo-osmolality and hyponatremia; J44.1 Chronic obstructive pulmonary disease with (acute) exacerbation; J44.0 Chronic obstructive pulmonary disease with (acute) lower respiratory infection; Z68.42 Body mass index [BMI] 45.0-49.9, adult; R65.20 Severe sepsis without septic shock; G62.9 Polyneuropathy, unspecified; M47.896 Other spondylosis, lumbar region; R73.9 Hyperglycemia, unspecified; M15.0 Primary generalized (osteo)arthritis; F17.210 Nicotine dependence, cigarettes, uncomplicated; G47.33 Obstructive sleep apnea (adult) (pediatric); E66.01 Morbid (severe) obesity due to excess calories; Z82.49 Family history of ischemic heart disease and other diseases of the circulatory system; Z80.8 Family history of malignant neoplasm of other organs or systems

== ENCOUNTER → 2025-04-19 | Outpatient (CLI) | payer MEDICARE ==
[~2025-04-19] MED LIST changes: +DOXYCYCLINE HY100 M3 PO; +OXYGEN NAS; +PREDNISONE10 MG PO; +SPIRIVA 5 CAPS18 MCG INH
== END | disposition home or self-care (01) ==
LOC: WOUNDCARE 02:09
PROVIDERS: ATTEND Nurse Practitioner Family
DX: S80.822A Blister (nonthermal), left lower leg, initial encounter (principal); S81.801A Unspecified open wound, right lower leg, initial encounter; L60.2 Onychogryphosis; I50.9 Heart failure, unspecified; J44.9 Chronic obstructive pulmonary disease, unspecified; M79.662 Pain in left lower leg; M79.661 Pain in right lower leg; M19.90 Unspecified osteoarthritis, unspecified site; F17.210 Nicotine dependence, cigarettes, uncomplicated; Z79.899 Other long term (current) drug therapy; X58.XXXA Exposure to other specified factors, initial encounter; Y93.89 Activity, other specified; Y92.89 Other specified places as the place of occurrence of the external cause; Y99.8 Other external cause status; B35.1 Tinea unguium

== ENCOUNTER → 2025-04-29 | Outpatient (CLI) | payer MEDICARE | LOC: WOUNDCARE 01:32 | PROVIDERS: ATTEND Nurse Practitioner Family | DX: S80.822D Blister (nonthermal), left lower leg, subsequent encounter (principal); L97.811 Non-pressure chronic ulcer of other part of right lower leg limited to breakdown of skin; I87.2 Venous insufficiency (chronic) (peripheral); L60.2 Onychogryphosis; B35.1 Tinea unguium; I50.9 Heart failure, unspecified; J44.9 Chronic obstructive pulmonary disease, unspecified; M19.90 Unspecified osteoarthritis, unspecified site; G62.9 Polyneuropathy, unspecified; F17.210 Nicotine dependence, cigarettes, uncomplicated; Z79.899 Other long term (current) drug therapy; X58.XXXD Exposure to other specified factors, subsequent encounter ==

== ENCOUNTER → 2025-05-11 | Outpatient (CLI) | payer MEDICARE | END | disposition home or self-care (01) | LOC: WOUNDCARE 02:17 | PROVIDERS: ATTEND Nurse Practitioner Family | DX: S80.822D Blister (nonthermal), left lower leg, subsequent encounter (principal); S81.801D Unspecified open wound, right lower leg, subsequent encounter; L60.2 Onychogryphosis; B35.1 Tinea unguium; I87.2 Venous insufficiency (chronic) (peripheral); I50.9 Heart failure, unspecified; G62.9 Polyneuropathy, unspecified; J44.9 Chronic obstructive pulmonary disease, unspecified; M19.90 Unspecified osteoarthritis, unspecified site; F17.210 Nicotine dependence, cigarettes, uncomplicated; X58.XXXD Exposure to other specified factors, subsequent encounter ==

== ENCOUNTER 2025-07-19 11:19 | Emergency (ER) | payer MEDICARE ==
[~2025-07-19] VITALS: Wt 120.7 kg
[2025-07-19] MEDS ORDERED: Albuterol Sulf/Ipratropium 3 ML VIAL NEB ONE (11:40)
[2025-07-19 12:01] LABS: BASO # 0.0 10*3/uL (0.0-0.1); BASO % 0.5 % (0.0-1.0); EOS # 0.1 10*3/uL (0.0-0.4); EOS % 2.0 % (1.0-4.0); MEAN CELL VOLUME 91.4 fl (81.0-99.0); MEAN CORPUSCULAR HGB 29.1 pg (27.0-31.0); MEAN PLATELET VOLUME 10.2 fl (9.6-12.3); MONO # 0.5 10*3/uL (0.1-1.0); MONO % 6.8 % (3.0-9.0); NEUT # 4.3 10*3/uL (2.3-7.9); NEUT % 64.8 % (47.0-73.0); NUCLEATED RED BLOOD CELL 0.0 % (0.0-0.0); NUCLEATED RED BLOOD CELL 0.0 10*3/uL (0.0-0.0); PLATELET COUNT AUTOMATED 154 10*3/uL (130-400); RED CELL DISTRI WIDTH 13.3 % (0-14.5)
[2025-07-19 12:43] LABS: BUN 9 mg/dl (9-23); CPK 71 U/L (34-171)
[2025-07-19 12:59] LABS: BILIRUBIN Negative (Negative); BLOOD Negative (Negative); CLARITY Clear (Clear); COLOR Yellow (Yellow); KETONE Trace (Negative); LEUKO ESTERASE Negative (Negative); NITRITE Negative (Negative); PH 5.5 (4.5-8.0); SPECIFIC GRAVITY 1.015 (1.001-1.030); UROBILINOGEN 1.0 E.U./dl (0.0-1.0)
[2025-07-19 13:08] LABS: BACTERIA TRACE; EPITHELIAL CELLS 0-2; RBC 0-2 rbc/hpf (0-2); WBC 0-2 wbc/hpf (0-5)
[2025-07-19] MEDS ORDERED: MIRALAX POWDER17 G1 PO (15:07)
[2025-07-19] MEDS ORDERED: COLACE100 MG PO (15:07)
[2025-07-19] MEDS ORDERED: PREDNISONE20 M1 PO (15:07)
[2025-07-19] MEDS ORDERED: Dexamethasone Sodium Phospha 20 MG/5 ML VIAL IV ONE (15:10)
== END 2025-07-19 15:23 | disposition home or self-care (01) ==
LOC: ED 11:19
PROVIDERS: Emergency Medicine
DX: J44.1 Chronic obstructive pulmonary disease with (acute) exacerbation (principal); K59.00 Constipation, unspecified; R30.9 Painful micturition, unspecified; E66.9 Obesity, unspecified; R20.2 Paresthesia of skin; F17.210 Nicotine dependence, cigarettes, uncomplicated; Z79.899 Other long term (current) drug therapy; Z98.890 Other specified postprocedural states; Z68.30 Body mass index [BMI] 30.0-30.9, adult

== ENCOUNTER → 2025-10-03 | Outpatient (CLI) | payer MEDICARE ==
[~2025-10-03] MED LIST changes: +COLACE100 MG PO; +MIRALAX POWDER17 G1 PO
== END | disposition home or self-care (01) ==
LOC: CARD 09-08 13:00
PROVIDERS: ATTEND Physician Assistant
DX: I44.0 Atrioventricular block, first degree (principal); R94.31 Abnormal electrocardiogram [ECG] [EKG]; I87.2 Venous insufficiency (chronic) (peripheral); R06.09 Other forms of dyspnea

== ENCOUNTER 2025-11-07 12:18 | Emergency (ER) | payer MEDICARE ==
[~2025-11-07] VITALS: Ht 165.1 cm; Wt 119.7 kg
[~2025-11-07 12:18] MED LIST changes: +ATORVASTATIN CA10 M1 PO; +FLUOXETINE HCL40 MG PO; +FUROSEMIDE40 MG PO; +MORPHINE SULFAT15 M7 PO; +POTASSIUM CHLO20 ME4 PO; +TRELEGY ELLIPT1 EAC1 INH
== END 2025-11-07 14:20 | disposition home or self-care (01) ==
LOC: ED 12:18
DX: I87.2 Venous insufficiency (chronic) (peripheral) (principal); R60.0 Localized edema; I10 Essential (primary) hypertension; J44.9 Chronic obstructive pulmonary disease, unspecified; Z98.890 Other specified postprocedural states